=== PATIENT | female | born 1955 | race Caucasian/White ===

== ENCOUNTER → 2019-12-21 12:01 | Outpatient (CLI) | payer MEDICARE, SELFPAY ==
--- NOTE | ~2019-12-21 | MR_ITS ---
EXAMINATION: MR orbits face neck wo/w con EXAM DATE: 12/21/2019 13:11 INDICATION: Lump on neck near marker for years. Not painful. Throat pain after singing. TECHNIQUE: Magnetic resonance imaging (MRI) images of the MR orbits face neck wo/w con were obtained. The following sequences were acquired: Axial T1, axial T2 STIR, coronal T1, coronal T2 STIR, sagitt al T1, sagittal T2 STIR, axial T1 fat saturation. Following post contrast images obtained after injec tion of 18 mL MultiHance: Postcontrast T1 fat saturation axial, coronal, sagittal sequences. There ar e no prior studies for comparison. FINDINGS: There is an externally placed marker located cephalad to the manubrium, slightly left of mi dline. There is no mass identified deep to this marker and the thyroid gland is unremarkable. Sternoc leidomastoid muscles are symmetric. No superior mediastinal mass or cervical lymphadenopathy. The par otid, submandibular glands are unremarkable. Parapharyngeal fat is normal. There are no suspicious ma rrow signal abnormalities. Mild cervical spondylosis. Left vertebral artery is dominant. IMPRESSION: Unremarkable MRA neck examination. Reviewed, dictated and finalized at location B. LE PARAMEDICAL EXAMINER
[2019-12-21 12:35] LABS: Blood Urea Nitrogen 17 mg/dL (8-26); Estimated Glomerular Filt Rate 55
== END ==
PROVIDERS: PCP Family Medicine; Visit Provider Family Medicine
DX: R22.1 Localized swelling, mass and lump, neck (principal)
CPT/HCPCS: 70543; A9577

== ENCOUNTER → 2021-01-06 08:47 | Outpatient (CLI) | payer MEDICARE, SELFPAY ==
--- NOTE | ~2021-01-06 | CT_ITS ---
EXAMINATION: CT abdomen pelvis wo con EXAM DATE: 01/06/2021 09:17 INDICATION: left kidney stone, lt flank pain, hematuria. TECHNIQUE: Spiral CT of the abdomen and pelvis was performed without contrast. Axial, coronal and sag ittal images were reviewed. The dose-length product (DLP) for this examination was 805.74 mGy-cm. T he exposure was tailored according to patient size (auto mA exposure control), and iterative reconstr uction (ASIR) was used as additional dose reduction technique. There is no prior study for compariso n. FINDINGS: There is no nephrolithiasis or hydronephrosis. Bilobulated right ovarian cystic lesion, c ould be small ovarian neoplasm, without evidence of solid mural nodule. Would favor benign histology to this finding. It measures 5.3 x 3.4 cm. Status post hysterectomy. The bladder is collapsed at time of imaging limiting evaluation. The liver, spleen, adrenal glands and pancreas are unremarkable. G allbladder is unremarkable. No biliary obstruction. There is no retroperitoneal or pelvic lymphaden opathy. The appendix is not positively visualized. There is no pericecal inflammatory change to suggest appe ndicitis. Moderate-sized gastroesophageal hiatal hernia. There is expected amount of colonic stool . No free intraperitoneal gas. The heart is normal in size. There are no pericardial or pleural effusions. The lung bases are unremarkable. There are no osteoblastic or osteolytic lesions identif ied. IMPRESSION: 1. No nephrolithiasis, hydronephrosis or acute intra-abdominal findings. 2. Bilobulated right ovarian cystic mass, possible cystadenoma or other ovarian neoplasm. More likel y benign histology given appearance. Consider FELLER OPERATOR consult, 6 month follow-up CT, or histologic correl ation. 3. Moderate-sized hiatal hernia. Reviewed, dictated and finalized at location B. SER TENDER IMPRESSION: 1. No nephrolithiasis, hydronephrosis or acute intra-abdominal findings. 2. Bilobulated right ovarian cystic mass, possible cystadenoma or other ovaria n neoplasm. More likely benign histology given appearance. Consider FELLER OPERATOR consult , 6 month follow-up CT, or histologic correlation. 3. Moderate-sized hiatal hernia.
--- NOTE | ~2021-01-06 | XR_ITS ---
EXAMINATION: XR abdomen/kub 1V EXAM DATE: 01/06/2021 09:17 INDICATION: Left-sided mid to low back pain for 2 months. Microscopic hematuria. Hysterectomy. TECHNIQUE: Frontal projection of the upper abdomen, frontal projection lower abdomen/pelvis for inter pretation. Correlation is made to CT abdomen pelvis same date. FINDINGS: There is expected amount of colonic stool and gas. No small bowel dilation, nonobstructiv e bowel gas pattern. There are no suspicious calcifications identified. There is no organomegaly suspected. Mild thoracal lumbar scoliosis. Lung bases are clear. IMPRESSION: No suspicious calcifications. Reviewed, dictated and finalized at location B. N ROOM HOUSEPERSON
== END ==
PROVIDERS: PCP Family Medicine; Visit Provider Physician Assistant Medical
DX: R10.9 Unspecified abdominal pain (principal); R31.9 Hematuria, unspecified; N20.0 Calculus of kidney; N83.201 Unspecified ovarian cyst, right side; K44.9 Diaphragmatic hernia without obstruction or gangrene
CPT/HCPCS: 74018; 74176

== ENCOUNTER → 2021-02-07 08:13 | Outpatient (CLI) | payer MEDICARE, SELFPAY ==
--- NOTE | ~2021-02-07 | XR_ITS ---
EXAMINATION: XR_RIBSBICXR1_CR EXAM DATE: 02/07/2021 08:36 INDICATION: L sided mid/lower lateral and posterior rib pain x 3 months, non smoker, no recent illne ss. TECHNIQUE: Frontal projection of the upper left ribs, frontal projection of the lower left ribs, obli que projection of the left ribs. Frontal projection of the upper right ribs, frontal projection of t he lower right ribs, oblique projection of the right ribs, frontal chest x-ray(s) for interpretation. There is no prior study for comparison. FINDINGS: There are no displaced acute rib fractures identified. There are no osteoblastic or osteol ytic lesions identified. The lungs are clear. There are no pleural effusions. The cardiomediastinal silhouette is within normal limits. There is no pneumothorax suspected. The bones and soft tissues are unremarkable. IMPRESSION: Unremarkable exam. Reviewed, dictated and finalized at location A. IMPRESSION: Unremarkable exam.
== END ==
PROVIDERS: PCP Family Medicine; Visit Provider Family Medicine
DX: M94.0 Chondrocostal junction syndrome [Tietze] (principal)
CPT/HCPCS: 71111

== ENCOUNTER 2021-12-14 08:48 | Emergency (ER) | payer MEDICARE, SELFPAY ==
[2021-12-14 08:55] VITALS: BP 150/84; PULSE 59; RESP 14; TEMP 36.9; O2SAT 99
--- NOTE | 2021-12-14 08:56 | ED.WOUNDLAC ---
HPI - Wound/Laceration General Chief Complaint: Wound/Laceration Stated Complaint: hand laceration. Time Seen by Provider: 12/14/21 08:53 Source: patient History of Present Illness HPI narrative: Patient presents with laceration on the hand. Patient ports she was sewing attempting to cut fabric with some scissors and accidentally cut her right hand. She irrigated her wound out with hydroperoxide monitor it may continue to hurt today so she came to the ER for evaluation. She denies any focal numbness or weakness. Reports her pain is sharp, constant, worse with palpation of the wound, no radiation. Related Data Home Medications Medication Instructions Recorded Confirmed aspirin 81 mg PO DAILY 10/12/19 02/02/21 cholecalciferol (vitamin D3) 25 1,000 unit PO DAILY 10/29/19 02/02/21 mcg (1,000 unit) tablet Allergies Allergy/AdvReac Type Severity Reaction Status Date / Time No Known Allergies Allergy Verified 12/14/21 08:58 Review of Systems Review of Systems: CONSTITUTIONAL: Denies fever, chills, or sweats. EYES: Denies visual changes, redness, or discharge. CARDIOVASCULAR: Denies chest pain, palpitations, or edema. RESPIRATORY: Denies cough or dyspnea. GASTROINTESTINAL: Denies abdominal pain, nausea, vomiting, or diarrhea. SKIN: Denies rash or itching. MUSCULOSKELETAL: Denies back pain, joint pain, or myalgia. NEUROLOGIC: Denies headache, numbness, dizziness, or weakness. PSYCHIATRIC: Denies anxiety or depression. All systems reviewed & are unremarkable except as noted in HPI and below PMFSH Past Medical History Medical History Acute venous embolism and thrombosis of upper extremity, unspecified Contact dermatitis Gout Family History Family History Mother Hypertension, Onset Age: 81 Family history of cardiovascular disease, Onset Age: 81 Family history of chronic obstructive pulmonary disease, Onset Age: 81 Father Family history of cardiovascular disease, Onset Age: 86 Other Diabetes mellitus Social History Social History Smoking status: Never smoker Alcohol intake: current Exam Narrative: GENERAL: Well-appearing, well-nourished, and in no acute distress. HEAD: Normocephalic, atraumatic. EYES: PERRLA and EOMI. ENT: Nares clear, no rhinorrhea or epistaxis. Mucous membranes moist. NECK: Supple. No masses. No JVD EXTREMITIES: Less than 1 cm superficial laceration on the webbing between the first and second digit on the right hand no deep space tissue visualized SKIN: Warm, dry, no rash. NEURO: No focal deficits. Alert and oriented x3. PSYCH: Normal mood and affect. Course Vital Signs Vital signs: Vital Signs Temperature 36.9 C 12/14/21 08:55 Pulse Rate 59 L 12/14/21 08:55 Respiratory Rate 14 12/14/21 08:55 Blood Pressure 150/84 H 12/14/21 08:55 Pulse Oximetry 99 12/14/21 08:55 Temperature 36.9 C 12/14/21 08:55 Pulse Rate 59 L 12/14/21 08:55 Respiratory Rate 14 12/14/21 08:55 Blood Pressure 150/84 H 12/14/21 08:55 Pulse Oximetry 99 12/14/21 08:55 Procedures Laceration Laceration 1: Date: 12/14/21 Time: 09:06 Site: hand Side (If applicable): right Size (cm): 0.75 Description: linear Depth: simple, single layer Local Anesthetic: none Pre-repair: irrigated ====== Skin Level ====== Skin layer closed with: dermabond ====== Subcutaneous Layer ====== ====== Muscle Layer ====== ====== Tendon Layer ====== MDM - Wound/Laceration MDM Narrative Medical decision making narrative: H&P as above, vss, pt looks clinically well, exam with superficial laceration distal extremity is neurovascularly intact, ll labs/img considered, symptomatic relief available as needed. Wound was irrigated
[2021-12-14] MEDS: TETANUS,DIPHTHERIA,AC PERTUSSIS ADULT (0.5 ML) BOOSTRIX IM (09:14)
== END 2021-12-14 09:42 | disposition home or self-care (01) ==
LOC: ANHED 09:19
PROVIDERS: Emergency Provider Emergency Medicine; PCP Family Medicine
DX: S61.411A Laceration without foreign body of right hand, initial encounter (principal); Z79.82 Long term (current) use of aspirin; M10.9 Gout, unspecified; Z86.718 Personal history of other venous thrombosis and embolism; Z23 Encounter for immunization; W27.2XXA Contact with scissors, initial encounter
CPT/HCPCS: 12001; 90471; 90715; 99282

== ENCOUNTER → 2023-07-04 13:33 | Outpatient (CLI) | payer MEDICARE, SELFPAY ==
--- NOTE | ~2023-07-04 | XR_ITS ---
EXAMINATION: XR chest 2V 07/04/2023 13:44 INDICATION: Shortness of breath PROCEDURE: 2 view chest COMPARISON: 04/14/2013 FINDINGS: The lungs are clear. The cardiomediastinal silhouette is within normal limits. There are no pleural effusions. There is no pneumothorax suspected. There is hiatal hernia. IMPRESSION: 1: NO ACUTE CARDIOPULMONARY DISEASE. Reviewed, dictated and finalized at location L.
== END ==
PROVIDERS: PCP Family Medicine; Visit Provider Family Medicine
DX: R06.02 Shortness of breath (principal)
CPT/HCPCS: 71046

== ENCOUNTER → 2023-08-22 16:32 | Outpatient (CLI) | payer MEDICARE, SELFPAY ==
--- NOTE | ~2023-08-22 | XR_ITS ---
XR hip RT min 2V 08/22/2023 16:59 Indication: Right hip pain Procedure: 2 views right hip Comparison: No prior studies for comparison. Findings: No fracture, subluxation or dislocation. No soft tissue abnormality. No foreign bodies. No soft tissue abnormality. Impression: 1: No significant bone or joint abnormality. Reviewed, dictated and finalized at location A. Impression: 1: No significant bone or joint abnormality.
--- NOTE | ~2023-08-22 | XR_ITS ---
XR lumbar spine 2-3V 08/22/2023 16:59 Indication: Back pain Procedure: 3 views lumbar spine Comparison: No prior studies for comparison. Findings: There is dextroscoliosis of the lumbar spine. Vertebral body heights are maintained. There is disc narrowing at L4-5 and L5-S1. There is facet hypertrophy at these levels. No acute fracture, s ubluxation or spondylolisthesis. Sacral foramen are symmetric. Impression: 1: Mild lumbar spondylosis with dextroscoliosis. Reviewed, dictated and finalized at location A. Impression: 1: Mild lumbar spondylosis with dextroscoliosis.
--- NOTE | ~2023-08-22 | XR_ITS ---
XR knee RT 3V 08/22/2023 16:59 Indication: Right knee pain Procedure: 3 views right knee Comparison: No prior studies for comparison. Findings: There is tricompartment osteoarthritis, severe in the patellofemoral compartment. There are loose bodies dorsal to the joint space. No joint effusion. No acute fracture or traumatic malalignme nt. Impression: 1: Advanced osteoarthritis of the right knee, most severe in the patellofemoral compartment. Reviewed, dictated and finalized at location A. Impression: 1: Advanced osteoarthritis of the right knee, most severe in the patellofemoral compartment.
== END ==
PROVIDERS: PCP Physician Assistant; Visit Provider Physician Assistant
DX: M25.551 Pain in right hip (principal); M25.561 Pain in right knee; M54.9 Dorsalgia, unspecified; M43.06 Spondylolysis, lumbar region; M41.86 Other forms of scoliosis, lumbar region; M17.11 Unilateral primary osteoarthritis, right knee
CPT/HCPCS: 72100; 73502; 73562

== ENCOUNTER 2023-09-16 13:33 | Outpatient (CLI) | payer MEDICARE, SELFPAY ==
--- NOTE | 2023-09-16 13:50 | ECHO_ITS ---
Patient Info Name: Bhavana Rasheed Age: 67 years : 1955 Gender: Female Ht: 64 in Wt: 208 lbs BSA: 2.11 m2 HR: 58 bpm BP: 135 / 79 mmHg Technical Quality: Fair Exam Date: 09/16/2023 1:57 PM Exam Location: Echo Lab Patient Status: Outpatient Admit Date: 09/16/2023 Staff Ordering Physician: Bethany Gamez MD Driver Medic: Deb Storey RDCS Attending Provider: Bethany Gamez MD Referring Physician: Vera DING; Exam Type: CA echo doppler color flow Study Info Indications R06.02 - Shortness of breath Complete two-dimensional, color flow and Doppler transthoracic echocardiogram is performed. Summary 1. Complete two-dimensional, color flow and Doppler transthoracic echocardiogram is performed. 2. Left ventricular chamber dimension is normal. 3. Left ventricular systolic function is normal, estimated at 65-70%. 4. The left ventricular diastolic function is abnormal. 5. E/e' 15 is elevated. 6. Left atrial chamber dimension is mildly enlarged. 7. There is trace tricuspid valve regurgitation. 8. No pulmonary hypertension, estimated pulmonary arterial systolic pressure is 27 mmHg. 9. There is trace pulmonic regurgitation. Left Ventricle E/e' 15 is elevated. Left ventricular chamber dimension is normal. Left ventricular systolic function is normal, estimated at 65-70%. The left ventricular diastolic function is abnormal. Right Ventricle Right ventricular chamber dimension is normal. Right ventricular systolic function is normal. Left Atria Left atrial chamber dimension is mildly enlarged. Right Atria Right atrial chamber dimension is normal. Aortic Valve The aortic valve is trileaflet. There is no aortic valve stenosis. There is no aortic valve regurgitation. Pulmonic Valve There is trace pulmonic regurgitation. Mitral Valve There is no mitral valve stenosis. There is no mitral valve regurgitation. Tricuspid Valve There is trace tricuspid valve regurgitation. No pulmonary hypertension, estimated pulmonary arterial systolic pressure is 27 mmHg. Pericardium/Pleural There is no pericardial effusion. Inferior Vena Cava Normal inferior vena cava with >50% collapse upon inspiration consistent with normal right atrial pressure, 5 mmHg. Aorta The aortic root size at the sinus of Valsalva is normal. Left Ventricular Outflow Tract Name Value Normal LVOT 2D LVOT Diameter 2.0 cm LVOT Doppler LVOT Peak Gradient 4 mmHg LVOT Mean Gradient 2 mmHg LVOT VTI 23 cm LVOT VTI/AV VTI Ratio 1.0 LVOT Stroke Volume 72 ml LVOT CO 4.2 l/min LVOT CI 2.0 l/min/m2 Pulmonic Valve Name Value Normal RVOT Doppler RVOT Peak Gradient 2 mmHg PV Doppler
--- NOTE | 2023-09-16 16:26 | WPDPFTINT ---
PFT Procedure Performed PFT Procedure Performed Spirometry with Pre/Post Bronchodilator Plethysmography (Lung Vol) Diffusing Cap (DLCO) Flow Vol Loop PFT Interpretation This is a pulmonary function test with pre and post-bronchodilator spirometry, plethysmography and diffusing capacity. The test was performed and results interpreted in accordance with the 2019 and 2005 ATS/ERS Task Force guidelines respectively using the Global Lung Function Initiative-2012 reference equations. Patient demonstrated good effort and cooperation. Reproducibility criteria were met. The quality of the pre bronchodilator spirometry maneuver was Grade A and post bronchodilator spirometry maneuver was Grade A. Findings: Spirometry: The contour the inspiratory and expiratory flow tracing are normal. The pre bronchodilator FVC is 2.81 L, 97% predicted. The pre bronchodilator FEV1 is 2.19 L, 97% predicted. The pre bronchodilator FEV1: FVC ratio 78%. The post bronchodilator FVC is 2.71 L, representing a 3% decrease. The post bronchodilator FEV1 is 2.17 L, representing 1% decrease. The post bronchodilator FEV1: FVC ratio is 80%. Plethysmography: The total lung capacity is 3.99 L, 79% predicted. The functional residual capacity is 1.48 L, 51% predicted. The residual volume is 1.12 L, 51% predicted. Diffusing capacity: The diffusing capacity unadjusted for hemoglobin and carboxyhemoglobin is 15.6, 76% predicted. The diffusing capacity adjusted for alveolar volume is 4.08, 95% predicted. Impression: There is a mild restrictive ventilatory abnormality with a normal FEV1. The spirometry is normal without evidence of an obstructive abnormality. There is no significant improvement after inhaling a single dose of albuterol. The diffusing capacity is normal. There are no prior studies for comparison
== END 2023-09-16 13:34 | disposition home or self-care (01) ==
LOC: ANHCARD 13:33
PROVIDERS: PCP Physician Assistant; Visit Provider Family Medicine
DX: I07.1 Rheumatic tricuspid insufficiency (principal); I37.1 Nonrheumatic pulmonary valve insufficiency; R93.1 Abnormal findings on diagnostic imaging of heart and coronary circulation; G47.33 Obstructive sleep apnea (adult) (pediatric)
CPT/HCPCS: 93306; 94060; 94726; 94729

== ENCOUNTER 2023-11-21 09:28 | Outpatient (CLI) | payer MEDICARE, SELFPAY ==
--- NOTE | ~2023-11-21 | NM_ITS ---
EXAMINATION: NM leeanna stress w perfusion DATE: 11/21/2023 11:14 INDICATION: Dyspnea on exertion. TECHNIQUE: Rest images were obtained following intravenous administration of 10 mCi Tc99m tetrofosmin (Myoview). The patient was infused intravenously with Lexiscan (regadenoson). Then, 30.8 mCi Tc99m t etrofosmin (Myoview) was administered intravenously, and stress images were obtained. Data was recons tructed into short axis and horizontal and vertical long axis SPECT images. Gated SPECT images were a lso obtained. COMPARISON: Myocardial perfusion imaging 05/15/2013 FINDINGS: There is no definite reversible or fixed perfusion abnormality to suggest ischemia or infar ction. There is no segmental wall motion abnormality. Left ventricular ejection fraction measures > 70%. IMPRESSION: 1. No definite ischemia or infarct. 2. Normal left ventricular ejection fraction measuring >70%. Reviewed, dictated and finalized at location A. ESALE LOAN PROCESSOR
--- NOTE | 2023-11-21 10:14 | EST_ITS ---
Patient Info Name: Bhavana Rasheed Age: 68 years : 1955 Gender: Female Ht: 64 in Wt: 200 lbs BSA: 2.06 m2 HR: 56 bpm BP: 131 / 58 mmHg Heart Rhythm: Sinus Rhythm Exam Date: 11/21/2023 10:26 AM Exam Location: Echo Lab Patient Status: Outpatient Admit Date: 11/21/2023 Staff Ordering Physician: Kyle Ocampo PA-C Attending Provider: Kyle Ocampo PA-C Exercise Technologist: Farheen Trujillo CT Exercise Physician: Jaswant Crespo DO Exam Type: CA stress leeanna w NM Study Info Indications R06.02 - Shortness of breath A regadenoson stress test was performed. Summary 1. 1. Negative lexiscan stress test for ischemic ST changes by ECG criteria. 2. 2. Stable hemodynamics throughout the test. 3. 3. Nuclear scan to follow and will be reported separately. Please correlate with it. 4. 4. Patient informed of the above results. Protocol: Lexiscan Stress ECG Details Stage: REST Duration (min): 5 min : 23 sec HR (bpm): 59 SBP (mmHg): 131 DBP (mmHg): 55 Stage: REST Duration (min): 10 min : 13 sec HR (bpm): 55 SBP (mmHg): 131 DBP (mmHg): 55 Stage: STAGE 1 Duration (min): 0 min : 59 sec HR (bpm): 74 SBP (mmHg): 127 DBP (mmHg): 60 Stage: RECOVERY Duration (min): 1 min : 0 sec HR (bpm): 89 SBP (mmHg): 127 DBP (mmHg): 60 Stage: RECOVERY Duration (min): 2 min : 0 sec HR (bpm): 88 SBP (mmHg): 127 DBP (mmHg): 60 Stage: RECOVERY Duration (min): 3 min : 0 sec HR (bpm): 83 SBP (mmHg): 127 DBP (mmHg): 60 Stage: RECOVERY Duration (min): 4 min : 0 sec HR (bpm): 79 SBP (mmHg): 123 DBP (mmHg): 65 Stage: RECOVERY Duration (min): 5 min : 0 sec HR (bpm): 69 SBP (mmHg): 126 DBP (mmHg): 64 Stage: RECOVERY Duration (min): 5 min : 43 sec HR (bpm): 70 SBP (mmHg): 126 DBP (mmHg): 64 Rest HR: 55 bpm Peak HR: 91 bpm Rest Sys BP: 131 mmHg Peak Sys BP: 127 mmHg Max Pred HR: 150 bpm % Max Pred HR: 61 % Target HR: 128 bpm Max RPP: 11,557 bpm*mmHg Termination Reason: Completed protocol Cardiac Symptoms: Dizziness, nausea, Shortness of breath Total Time: 1 min : 0 sec Rest Sparrow BP: 55 mmHg Peak Sparrow BP: 60 mmHg Total Dose: 0.4 mg Resting ECG Sinus rhythm. Stress ECG No ST changes. Aminophylline 100 mg IV given for intolerable symptoms 5 minutes after Lexiscan given. Arrhythmias None. Report Signatures
== END 2023-11-21 09:29 | disposition home or self-care (01) ==
PROVIDERS: PCP Family Medicine; Visit Provider Physician Assistant
DX: I51.89 Other ill-defined heart diseases (principal); R06.02 Shortness of breath
CPT/HCPCS: 78452; 93017; A9502; J0280; J2785